=== PATIENT | female | born 1980 | race Caucasian/White ===

== ENCOUNTER 2021-05-29 00:40 | Emergency (ER) | payer OTHER ==
[~2021-05-29] VITALS: Ht 160 cm; Wt 136.4 kg
[2021-05-29 01:31] VITALS: BP 129/82
[2021-05-29] MEDS ORDERED: HYDROCODONE/ACETAMINOPHEN 5-325 MG TABLET PO ONE (01:45)
[2021-05-29] MEDS ORDERED: ValACYclovir HCL 500 MG TABLET PO ONE (01:45)
[2021-05-29] MEDS ORDERED: ONDANSETRON HCL 4 MG TABLET PO ONE (01:45)
== END 2021-05-29 02:23 | disposition home or self-care (01) ==
LOC: EMS 01:01
DX: B02.9 Zoster without complications (principal)
CPT/HCPCS: 99284; Q0162